=== PATIENT | female | born 1990 | race Caucasian/White ===

== ENCOUNTER 2018-04-29 18:21 | Emergency (ER) | payer OTHER ==
--- NOTE | 2018-04-29 20:17 | C.PDOC ---
History Of Present Illness 28 year old female with PMHx of asthma presents to ED with complaint of near syncope while at work today. States she was sitting down at her desk when she felt lightheaded. States she did not lose consciousness. Symptoms resolved sp ontaneously. Also complains of intermittent mid-sternal chest pressure for the past 1.5 months. Episodes are associated with SOB and worsen with heavy lifting. Also notes anxiety and hair loss in the past few months. Denies diaphoresis, nausea, vomiting, fever, chills, recent illness, and cough. LMP was 04/21/18, states periods are regular and denies heavy bleeding. <Ladonna Arteaga P - Last Filed: 04/29/18 21:41> <True Bragg E - Last Filed: 04/29/18 21:29> <Ladonna Arteaga P - Last Filed: 04/29/18 21:41> Time Seen by Provider: 04/29/18 19:22 Chief Complaint (Nursing): Chest Pain Past Medical History Vital Signs: Last Vital Signs Temp 98.9 F 04/29/18 18:53 Pulse 85 04/29/18 20:48 Resp 18 04/29/18 20:48 BP 99/55 L 04/29/18 20:48 Pulse Ox 99 04/29/18 21:28 <True Bragg E - Last Filed: 04/29/18 21:29> Vital Signs: Last Vital Signs Temp 98.9 F 04/29/18 18:53 Pulse 79 04/29/18 19:10 Resp 18 04/29/18 18:53 BP 105/66 04/29/18 19:10 Pulse Ox 99 04/29/18 18:53 - Medical History PMH: Asthma Family History: States: Unknown Family Hx - Social History Hx Tobacco Use: No Hx Alcohol Use: No Hx Substance Use: No - Immunization History Hx Tetanus Toxoid Vaccination: No Hx Influenza Vaccination: No Hx Pneumococcal Vaccination: No <Ladonna Arteaga P - Last Filed: 04/29/18 21:41> Review Of Systems Constitutional: Negative for: Fever, Chills, Weakness Cardiovascular: Positive for: Chest Pain, Light Headedness. Negative for: Palpitations Respiratory: Positive for: Shortness of Breath. Negative for: Cough Gastrointestinal: Negative for: Nausea, Vomiting, Abdominal Pain, Diarrhea, Constipation Genitourinary: Negative for: Dysuria, Frequency, Hematuria Neurological: Negative for: Weakness, Numbness, Dizziness Psych: Positive for: Anxiety <Ladonna Arteaga P - Last Filed: 04/29/18 21:41> Physical Exam - Physical Exam Appears: Non-toxic, No Acute Distress Skin: Normal Color, Warm, Dry Head: Atraumatic, Normacephalic Eye(s): bilateral: PERRL, EOMI Nose: Normal, No Flaring Throat: Normal Neck: Normal, Normal ROM Chest: Symmetrical, No Deformity, No Tenderness, No Ecchymosis Cardiovascular: Rhythm Regular, No Rhythm Irregular, No Edema, No Friction Rub, No Murmur, No JVD Respiratory: Normal Breath Sounds, No Decreased Breath Sounds, No Accessory Muscle Use, No Rhonchi, No Stridor, No Wheezing Gastrointestinal/Abdominal: Normal Exam, Bowel Sounds, Soft, No Tenderness, No Guarding, No Rebound Extremity: Normal ROM, No Tenderness, No Pedal Edema, No Calf Tenderness Pulses: Left Dorsalis Pedis: Normal, Right Dorsalis Pedis: Normal Neurological/Psych: Oriented x3, Normal Cognition, Normal Cranial Nerves, Normal Motor <Ladonna Arteaga P - Last Filed: 04/29/18 21:41> ED Course And Treatment - Laboratory Results Result Diagrams: 04/29/18 20:12 04/29/18 20:12 <True Bragg E - Last Filed: 04/29/18 21:29> - Laboratory Results Result Diagrams: 04/29/18 20:12 04/29/18 20:12 O2 Sat by Pulse Oximetry: 99 <Arteaga,Ladonna P - Last Filed: 04/29/18 21:41> Medical Decision Making Medical Decision Making: Plan: CBC: WNL CMP: WNL Troponin: Negative Ddimer: Negative BHCG: Negative TSH: WNL CXR: no active disease EKG: NSR at 80bpm Work up negative. Due to positional nature, chest pain likely muskuloskeletal with anxiety component. Patient stable for discharge. <Arteaga,Ladonna P - Last Filed: 04/29/18 21:41> Disposition Doctor Will See Patient In The: Office Counseled Patient/Family Regarding: Studies Performed, Diagnosis <True Bragg E - Last Filed: 04/29/18 21:29> - Disposition Disposition Time: 21:28 <Ladonna Arteaga P - Last Filed: 04/29/18 21:41> - Disposition Disposition: HOME/ ROUTINE Condition: STABLE Additional Instructions: motrin/advil 400-600 mg every 6 hours as needed for chest wall discomfort labs/cardiac workup and TSH (thyroid hormone) all NORMAL EKG and Chest X-Ray normal. Forms: [facility] (Spanish) - Clinical Impression Clinical Impression: Chest pain
[2018-04-29 20:18] LABS: BASO % 0.4 % (0.0-2.0); EOS # 0.1 K/uL (0.0-0.7); EOS % 1.6 % (0.0-4.0); HEMOGLOBIN 11.9 g/dL (11.0-16.0); LYMPH # 2.1 K/uL (1.0-4.3); MEAN CELL VOLUME 89.2 fL (81.0-99.0); MEAN CORPUSCULAR HEMOGLOBIN 30.5 pg (27.0-31.0); MEAN CORPUSCULAR HGB CONC 34.1 g/dL (33.0-37.0); MONO # 0.6 K/uL (0.0-0.8); MONO % 9.4 % (0.0-10.0); NEUT # 3.3 K/uL (1.8-7.0); NEUT % 53.6 % (50.0-75.0); RBC 3.89 Mil/uL (3.80-5.20); RED CELL DISTRIBUTION WIDTH 11.6 % (11.5-14.5); WHITE BLOOD COUNT 6.1 K/uL (4.8-10.8)
[2018-04-29 20:48] LABS: ALB/GLOB RATIO 1.3 (1.0-2.1); ALBUMIN 4.7 g/dL (3.5-5.0); ALT/SGPT 12 U/L (9-52); AST/SGOT 18 U/L (14-36); BLOOD UREA NITROGEN 9 mg/dL (7-17); CALCIUM 9.4 mg/dl (8.6-10.4); GFR NON-AFRICAN AMERICAN > 60
[2018-04-29 20:55] VITALS: O2SAT 99
[2018-04-29 21:43] VITALS: BP 114/66; PULSE 82; RESP 16; TEMP 98.7
--- NOTE | 2018-04-30 07:51 | RAD ---
Date of service: 04/29/2018 HISTORY: chest pain, shortness of breath COMPARISON: 07/02/2013 TECHNIQUE: Chest PA and lateral FINDINGS: LUNGS: No active pulmonary disease. PLEURA: No significant pleural effusion identified. No pneumothorax apparent. CARDIOVASCULAR: No aortic atherosclerotic calcification present. Normal cardiac size. No pulmonary vascular congestion. OSSEOUS STRUCTURES: No significant abnormalities. VISUALIZED UPPER ABDOMEN: Normal. OTHER FINDINGS: None. IMPRESSION: No active disease. No interval pathology noted
--- NOTE | 2018-04-30 12:22 | CARD ---
APPROVED REPORT Date of service: 04/29/2018 EKG Measurement Heart [id number] <Conclusion> Normal sinus rhythm Normal ECG
== END 2018-04-29 21:43 | disposition home or self-care (01) ==
LOC: C.ER 18:21
DX: R07.9 Chest pain, unspecified (principal)